=== PATIENT | male | born 1985 | race African-American/Black ===

== ENCOUNTER 2018-12-07 11:37 | Emergency (ER) | payer BC ==
[~2018-12-07] VITALS: Ht 182.9 cm; Wt 91.0 kg
[2018-12-07] MEDS ORDERED: TRAMADOL 50MG TABLET PO ONE (16:00)
[2018-12-07] MEDS ORDERED: KETOROLAC 60MG/2ML VIAL IM ONE (16:00)
[2018-12-07 16:16] VITALS: BP 130/76
== END 2018-12-07 16:18 | disposition home or self-care (01) ==
LOC: ER 13:00
DX: M25.571 Pain in right ankle and joints of right foot (principal)
CPT/HCPCS: 73610; 73630; 93970; 96372; 99284; J1885; Z7610